=== PATIENT | male | born 1940 | race Caucasian/White ===

== ENCOUNTER 2021-04-16 16:29 | Emergency (ER) | payer MEDICARE, OTHER ==
[~2021-04-16 16:29] MED LIST: ALL DAY ALLERGY10 MG PO; ASPIRIN EC81 MG PO; FLOMAX 0.4 MG0.4 MG PO; K-DUR20 MEQ PO; LASIX20 MG PO; LOPRESSOR25 MG PO; PRAVACHOL40 MG PO; SINGULAIR10 MG PO
[2021-04-16 19:05] LABS: BASOPHIL 0.9 % (0-2); EOSINOPHIL 4.6 % (0-7); HCT 46.3 % (42.0-52.0); HGB 14.9 g/dl (13.2-18.0); LYMPHOCYTE 35.7 % (15-48); MCH 28.9 pg (25.0-31.0); MCHC 32.2 g/dL (32.0-36.0); MCV 89.7 fL (78.0-100.0); MONOCYTE 10.3 % (0-12); MPV 9.8 fL (6.0-9.5); NEUTROPHIL 46.5 % (41-80); NRBC 0; PLT 159 K/uL (150-400); RBC 5.16 M/uL (4.70-6.00); RDW 13.3 % (11.5-14.0)
[2021-04-16 19:21] LABS: BUN/CREAT RATIO (CALC) 16.4 RATIO; CREATININE 1.65 mg/dL (0.67-1.17); POTASSIUM 4.3 mmol/L (3.5-5.1)
[2021-04-16] MEDS ORDERED: VENTOLIN HFA IN18 GM INH (20:08)
== END 2021-04-16 20:30 | disposition home or self-care (01) ==
LOC: FER 16:29
PROVIDERS: Nurse Practitioner Family
DX: I10 Essential (primary) hypertension (principal); J06.9 Acute upper respiratory infection, unspecified; Z88.0 Allergy status to penicillin
CPT/HCPCS: 36415; 71045; 80048; 85025

== ENCOUNTER → 2021-08-14 | Day surgery (SDC) | payer MEDICARE, OTHER ==
[~2021-08-14] VITALS: Ht 182.9 cm; Wt 99.8 kg
[~2021-08-14] MED LIST changes: +NORCO 5-325 TA1 EACH PO; +NORVASC5 MG PO; +ONDANSETRON ODT8 MG PO; +TERAZOSIN HCL5 MG PO; +VENTOLIN HFA IN18 GM INH
[2021-08-14 08:32] LABS: HCT 42.2 % (42.0-52.0); HGB 13.8 g/dl (13.2-18.0); MCH 29.3 pg (25.0-31.0); MCHC 32.7 g/dL (32.0-36.0); MCV 89.6 fL (78.0-100.0); MPV 9.8 fL (6.0-9.5); RBC 4.71 M/uL (4.70-6.00); RDW 12.8 % (11.5-14.0); WBC 6.8 K/uL (4.0-10.5)
[2021-08-14 09:11] LABS: BILIRUBIN - TOTAL 0.5 mg/dL (0.2-1.0); BUN/CREAT RATIO (CALC) 16.2 RATIO; CREATININE 1.73 mg/dL (0.67-1.17); GLOBULIN (CALCULATION) 3.6 g/dL; POTASSIUM 3.9 mmol/L (3.5-5.1); TOTAL PROTEIN 7.6 g/dL (6.4-8.2)
== END | disposition home or self-care (01) ==
LOC: FAS 07:52
PROVIDERS: Surgery
DX: K80.10 Calculus of gallbladder with chronic cholecystitis without obstruction (principal); I10 Essential (primary) hypertension; Z88.0 Allergy status to penicillin; Z79.82 Long term (current) use of aspirin
CPT/HCPCS: 36415; 80053; C1758; J1100; J1170; J2250; J2405; J2704; J3010; J7120; Q9967